=== PATIENT | male | born 1985 | race Caucasian/White ===

== ENCOUNTER 2022-06-30 10:15 | Emergency (ER) | payer SELFPAY | END 2022-07-18 | disposition left against medical advice (07) | LOC: EDBD → EMS 10:18 | DX: R10.9 Unspecified abdominal pain (principal); Z53.21 Procedure and treatment not carried out due to patient leaving prior to being seen by health care provider | CPT/HCPCS: 73100-99 ==

== ENCOUNTER 2022-07-04 10:17 | Emergency (ER) | payer SELFPAY | END 2022-07-04 10:18 | disposition left against medical advice (07) | LOC: EMS 10:18 → EDBD 10:18 | DX: Z53.21 Procedure and treatment not carried out due to patient leaving prior to being seen by health care provider (principal) ==